=== PATIENT | male | born 1965 | race Two or more races ===

== ENCOUNTER 2021-05-10 19:00 | Emergency (ER) | payer SELFPAY ==
[2021-05-11 02:47] VITALS: BMI 34.9
[2021-05-11 02:59] VITALS: BP 145/89; PULSE 92; TEMP 97.8
== END 2021-05-11 02:48 | disposition home or self-care (01) ==
LOC: JERFT 19:00
DX: S82.002A Unspecified fracture of left patella, initial encounter for closed fracture (principal); M79.652 Pain in left thigh
CPT/HCPCS: 73560-TC-LT-FY; 99284-25